=== PATIENT | female | born 1995 | race Caucasian/White ===

== ENCOUNTER 2017-10-26 08:06 | Inpatient (IN) | payer OTHER ==
[~2017-10-26] VITALS: Ht 154.9 cm; Wt 87.3 kg
[2017-10-26] VITALS (12 sets, daily range): BP systolic 128–161; BP diastolic 70–95; PULSE 73–157; TEMP 97.9–99.5
[~2017-10-26 08:06] MED LIST: IBU-6600 MG PO; NO HOME MEDICATIONS; NORCO 325 MG-51 TAB PO; NUVARING VAG RING VG; PERCOCET 325 MG1 TA2 PO; PRENATAL1 TA1 PO
[2017-10-26 08:58] LABS: BASO % 0.3 % (0.0-2.0); EOS # 0.1 (0.0-0.7); EOS % 0.8 % (0-4.0); GRAN # 7.4 (1.4-6.5); HEMOGLOBIN 12.7 g/dl (12.5-16.0); LYMPH # 3.7 (1.2-3.4); LYMPH % 30.7 % (20.0-51.0); MEAN CELL VOLUME 91 fl (80.0-100.0); MEAN CORPUSCULAR HEMOGLOBIN 32 pg (27.0-31.0); MEAN CORPUSCULAR HGB CONC 35 g/dl (33.0-37.0); MEAN PLATELET VOLUME 12.6 fl (7.4-10.4); MONO # 0.8 (0.1-0.6); MONO % 6.7 % (1.7-9.3); PLATELET COUNT 242 K/mm3 (130-400); RED BLOOD COUNT 3.97 M/mm3 (4.10-5.30); REDCELL DISTRIBUTION WIDTH-CV 14.9 % (11.5-14.5)
[2017-10-26 09:01] LABS: HEMATOCRIT 36.2 % (37.0-47.0)
[2017-10-27 00:20] VITALS: BP 142/81; PULSE 83; TEMP 98.9
[2017-10-27 04:20] VITALS: BP 125/90; PULSE 70; TEMP 97.8
[2017-10-27 08:45] VITALS: BP 128/75; PULSE 74; TEMP 98.5
[2017-10-27] MEDS ORDERED: PERCOCET 325 MG1 TA2 PO (08:50)
[2017-10-27] MEDS ORDERED: IBU800 M1 PO (08:50)
[2017-10-27 14:30] VITALS: BP 136/87; PULSE 72; TEMP 97.9
== END 2017-10-27 14:45 | disposition home or self-care (01) | DRG 774 ==
LOC: OB 08:06 → LDR 08:06 → OB 12:09 → LDR 10-28 11:22
PROVIDERS: Student in an Organized Health Care Education/Training Program
PROC: 10E0XZZ Delivery of Products of Conception, External Approach (ICD-10-PCS; principal; 2017-10-26)
PROC: 0KQM0ZZ Repair Perineum Muscle, Open Approach (ICD-10-PCS; 2017-10-26)
PROC: 0UQMXZZ Repair Vulva, External Approach (ICD-10-PCS; 2017-10-26)
DX: O70.1 Second degree perineal laceration during delivery (principal); Z37.0 Single live birth; O13.5 Gestational [pregnancy-induced] hypertension without significant proteinuria, complicating the puerperium; O71.82 Other specified trauma to perineum and vulva; Z3A.40 40 weeks gestation of pregnancy; Z23 Encounter for immunization
CPT/HCPCS: J2590; J7120

== ENCOUNTER 2019-03-08 16:31 | Outpatient (CLI) | payer SELFPAY ==
[~2019-03-08] VITALS: Ht 156.2 cm; Wt 83.9 kg
--- NOTE | 2019-03-08 16:25 | NUR ---
Pt here from the [facility] for IVF and NST. 36.6 weeks gestation, G3L2. Pt states baby is active. Pt to [facility], explained. Consent signed. Assessment complete. Pt denies any vaginal bleeding, leaking of fluid or contractions. Dr Aaron states pt with borderline low LAURIE and will given 1000ml LR and may DC home after reactive NST. IV started to left hand x 1 attempt. LR bolus started. Pt's family is at bedside. VSS, afebrile. FHR reactive.
[~2019-03-08 16:31] MED LIST changes: +IBU800 M1 PO
[2019-03-08] MEDS ORDERED: PRENATAL MVI (16:34)
--- NOTE | 2019-03-08 17:15 | NUR ---
1L LR infused. IVF and INT d/c. Discharge instructions given. No questions or concerns at this time. Leaves unit ambulatory.
== END 2019-03-08 17:15 | disposition home or self-care (01) ==
LOC: LDRO 16:31 → LDR 16:32 → LDRO 17:15
DX: O36.8930 Maternal care for other specified fetal problems, third trimester, not applicable or unspecified (principal); Z3A.36 36 weeks gestation of pregnancy
CPT/HCPCS: OP; J7120

== ENCOUNTER 2019-03-22 01:46 | Inpatient (IN) | payer OTHER ==
[~2019-03-22] VITALS: Ht 157.5 cm; Wt 83.2 kg
[2019-03-22] VITALS (14 sets, daily range): BP systolic 109–136; BP diastolic 58–89; PULSE 66–103; TEMP 98–98.7
--- NOTE | 2019-03-22 01:35 | NUR ---
G3L2. 38-6. Wheeled to LDR 3 with spouse. Pt states she is feeling pressure. SVE /-1. PT states she has been ellie since 42. Denies LOF. EFM and TOCO applied. called and requested at hospital. Pt requesting epidural. GRECIA Barnes notified. 0144: IV Started and labs obtained vis IV site. LR bolus infusing with Pen G without difficulties. 0147: at bedside SVE /0, Plan of care explained to pt and pt still requesting epidural. 0156: Deep variable decelerations noted with contractions. remains at nurses station and reviews FHR strip. PT repositioned to and oxygen administered via oxymask. 0203: Pt reports feeling the need to push. at bedside. SVE C/+2. Pt prepped for delivery. 0205: Spontaneous delivery of viable female by . Infant to mothers chest where dried and stimulated by nursery RN. Cord clamped X2 and cut by FOB. Care of infant assumed by Lucas CAMP. 0209: Spontaneous delievery of intact placenta by . Pitocin started at 333mus/hr per procotol. Perineum intact. Fundal message performed by provider. Plan of care explained to pt and . Pericare provided, pads changed and pt repositioned in bed. Safety precautions explained to pt. Call light within reach.
[~2019-03-22 01:46] MED LIST changes: +PRENATAL MVI
[2019-03-22 01:57] LABS: BASO % 0.1 % (0.0-2.0); EOS # 0.1 (0.0-0.7); EOS % 0.8 % (0-4.0); GRAN # 10.4 (1.4-6.5); GRAN % 71.6 % (42.2-75.2); HEMOGLOBIN 12.5 g/dl (12.5-16.0); LYMPH # 2.9 (1.2-3.4); LYMPH % 20.1 % (20.0-51.0); MEAN CELL VOLUME 93 fl (80.0-100.0); MEAN CORPUSCULAR HEMOGLOBIN 31 pg (27.0-31.0); MEAN CORPUSCULAR HGB CONC 34 g/dl (33.0-37.0); MEAN PLATELET VOLUME 11.7 fl (7.4-10.4); PLATELET COUNT 255 K/mm3 (130-400); RED BLOOD COUNT 3.98 M/mm3 (4.10-5.30); REDCELL DISTRIBUTION WIDTH-CV 13.7 % (11.5-14.5)
[2019-03-22 01:58] LABS: HEMATOCRIT 36.8 % (37.0-47.0)
[2019-03-23 07:30] VITALS: BP 120/75; PULSE 80; TEMP 98.3
[2019-03-23 16:36] VITALS: BP 117/71; PULSE 72; TEMP 97.9
[2019-03-23 21:00] VITALS: BP 119/76; PULSE 70; TEMP 98
[2019-03-24 09:09] VITALS: BP 111/79; PULSE 82
== END 2019-03-24 17:10 | disposition home or self-care (01) | DRG 807 ==
LOC: LDRO 01:46 → OB 02:29
PROVIDERS: ADMIT Student in an Organized Health Care Education/Training Program
PROC: 10E0XZZ Delivery of Products of Conception, External Approach (ICD-10-PCS; principal; 2019-03-22)
PROC: 10907ZC Drainage of Amniotic Fluid, Therapeutic from Products of Conception, Via Natural or Artificial Opening (ICD-10-PCS; 2019-03-22)
DX: O99.824 Streptococcus B carrier state complicating childbirth (principal); Z37.0 Single live birth; O76 Abnormality in fetal heart rate and rhythm complicating labor and delivery; O62.3 Precipitate labor; O69.1XX0 Labor and delivery complicated by cord around neck, with compression, not applicable or unspecified; Z3A.38 38 weeks gestation of pregnancy
CPT/HCPCS: J2540; J2590; J7120

== ENCOUNTER → 2019-09-28 | Outpatient (CLI) | payer SELFPAY ==
--- NOTE | 2019-09-28 11:44 | NUR ---
Pt, Delaney Sethi, presents to clinic with 6 month old baby girl, Kinza Sethi, for a evaluation upon referral by Dr. Mcarthur. Kinza is <1% for growth at 6 months of age. Kinza was born on [birth year] and weighed 6#10oz. At her 6 month [address] Mcarthur yesterday her weight was 10# 14.9oz (4.96 kg). Today Kinza weighs 10# 14oz (4932 gms). Delaney reports Kinza now breastfeeds q 2-3 hours in the daytime, and 4 hours at noc, still getting 8 breastfeedings daily. She also reports Kinza receives mashed beans, carrots, squash, yougert bites, and bananas by spoon at one meal daily, and BID for snacks. Kinza also takes 2-2oz bottles of EBM with rice cereal BID. Delaney states she collects 2oz of breastmilk BID, collection time is about 1.5 hours p . Kinza does not drink any formula at this reporting. Voids and stools are WNL for age. Kinza appears to latch well at this feeding, although Delaney states she sometimes uses the nipple shield for soreness, which is unusual at this stage. LC evaluates tongue mobility between breasts, Kinza is not lateralizing or raising the tongue up to the corners of her mouth. When the tongue is elevated with digital exam, the center of the tongue remains low and creates a divot. The tip of the tongue indents with tongue extension but the tongue is noted to cross the gum line and is visualized on the bottom side of the nipple with . After bilaterally Kinza has a weight gain of 1.5oz (44 gms) from the right breast and 2.8oz (78 gms) from the left for a total of 4.3oz (122 gms). 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 Recommendation: Continue current feeding plan, adding 2-3oz EBM after at least 6 feedings per day. Add 1/2 amount of rice cereal to bottles if she does not take plain EBM. F/U: Weight check as scheduled with Dr. Mcarthur. Walk in clinic next Wednesday10/03/19, or by telephone if not able to come in on that day. [facility] information also provided for pt's convenience for weight check if she cannot come to clinic on Wednesday as she lives [place] [address] from [facility]. Questions invited and answered.
== END ==
LOC: OLC 11:17
DX: Z39.1 Encounter for care and examination of lactating mother (principal); Z71.89 Other specified counseling

== ENCOUNTER 2020-06-25 18:51 | Emergency (ER) | payer SELFPAY ==
[~2020-06-25] VITALS: Ht 154.9 cm; Wt 81.8 kg
[2020-06-25 18:56] VITALS: BP 144/97; PULSE 99; TEMP 97.8
[2020-06-25] MEDS ORDERED: CEPHALEXIN500 M1 PO (20:27)
== END 2020-06-25 20:48 | disposition home or self-care (01) ==
LOC: COL.ER 18:51
DX: S61.412A Laceration without foreign body of left hand, initial encounter (principal); W26.0XXA Contact with knife, initial encounter

== ENCOUNTER → 2020-07-10 | Outpatient (CLI) | payer SELFPAY ==
[~2020-07-10] MED LIST changes: +CEPHALEXIN500 M1 PO
[2020-07-10 19:48] VITALS: BP 124/87; PULSE 92
== END ==
LOC: COL.ER 19:46
DX: Z48.02 Encounter for removal of sutures (principal)

== ENCOUNTER 2023-10-26 19:31 | Emergency (ER) | payer OTHER ==
[~2023-10-26] VITALS: Ht 157.5 cm; Wt 92.3 kg
[2023-10-26 19:42] VITALS: TEMP 99
[2023-10-26 20:21] LABS: BASO % 0.2 % (0.0-2.0); EOS # 0.2 K/mm3 (0.0-0.7); EOS % 1.7 % (0.0-4.0); GRAN # 5.9 K/mm3 (1.4-6.5); HEMOGLOBIN 12.4 g/dl (12.5-16.0); LYMPH # 2.7 K/mm3 (1.2-3.4); LYMPH % 27.9 % (20.0-51.0); MEAN CELL VOLUME 91 fl (80.0-100.0); MEAN CORPUSCULAR HEMOGLOBIN 31 pg (27-31); MEAN CORPUSCULAR HGB CONC 34 g/dl (33.0-37.0); MEAN PLATELET VOLUME 10.3 fl (7.4-10.4); MONO # 0.7 K/mm3 (0.1-0.6); MONO % 7.8 % (1.7-9.3); PLATELET COUNT 292 K/mm3 (130-400); RED BLOOD COUNT 3.99 M/mm3 (4.10-5.30); REDCELL DISTRIBUTION WIDTH-CV 13.9 % (11.5-14.5)
[2023-10-26 20:22] LABS: HEMATOCRIT 36.3 % (37.0-47.0)
[2023-10-26 20:44] LABS: ALBUMIN 3.1 g/dL (3.5-5.0); BILIRUBIN,TOTAL 0.3 mg/dL (0.2-1.2); CALCIUM 9.4 mg/dL (8.4-10.2); CREATININE, serum 0.66 mg/dL (0.57-1.11); POTASSIUM 3.3 mEq/L (3.5-4.5); TOTAL PROTEIN 7.7 g/dl (6.2-8.1)
--- NOTE | 2023-10-26 21:30 | NUR ---
2130 EFM ON FOR 20 MINUTE STRIP. BASELINE 155 WITH INCREASES TO 165 FOR FEW SECONDS. GOOD VARIABLITY NOTED.
[2023-10-26 22:00] VITALS: BP 129/87; PULSE 97
== END 2023-10-26 22:05 | disposition home or self-care (01) ==
LOC: COL.ER 19:31
PROVIDERS: Emergency Medicine
DX: O99.891 Other specified diseases and conditions complicating pregnancy (principal); R06.02 Shortness of breath; Z3A.27 27 weeks gestation of pregnancy

== ENCOUNTER 2024-01-21 06:07 | Inpatient (IN) | payer OTHER ==
[~2024-01-21] VITALS: Ht 154.9 cm; Wt 98.2 kg
[2024-01-21] VITALS (13 sets, daily range): BP systolic 113–148; BP diastolic 56–88; PULSE 73–95; TEMP 98–98.6
--- NOTE | 2024-01-21 06:00 | NUR ---
PT WHEELED TO LR5 WITH SPOUSE AT SIDE. PT CHANGED INTO CLEAN GOWN VOIDED, AND INTO LABOR BED. PT PLACED ON EFM AND TOCO. SVE AT THIS TIME IS 8/90/0. INTACT. NOTIFIED PHYSICIAN OF PT'S ARRIVAL. ADMISSION ORDERS RCVD. IV STARTED TO LEFT WRIST, IV FLUIDS INFUSING AT THIS TIME. ADMISSION CONSENTS GONE OVER AND PT VERBALIZED UNDERSTANDING OF PLAN OF CARE. PT POSITIONED TO WEDGE LEFT. NO OTHER CONCERNS AT THIS TIME.
[2024-01-21] MEDS ORDERED: LR 1,000 ML IV SCH (06:30)
[2024-01-21 06:58] LABS: BASO % 0.3 % (0.0-2.0); EOS # 0.1 K/mm3 (0.0-0.7); EOS % 1.1 % (0.0-4.0); GRAN # 6.6 K/mm3 (1.4-6.5); GRAN % 66.7 % (42.2-75.2); HEMATOCRIT 38.8 % (37.0-47.0); HEMOGLOBIN 13.4 g/dl (12.5-16.0); LYMPH # 2.5 K/mm3 (1.2-3.4); MEAN CELL VOLUME 89 fl (80.0-100.0); MEAN CORPUSCULAR HEMOGLOBIN 31 pg (27-31); MEAN CORPUSCULAR HGB CONC 35 g/dl (33.0-37.0); MONO # 0.7 K/mm3 (0.1-0.6); MONO % 6.6 % (1.7-9.3); PLATELET COUNT 269 K/mm3 (130-400); RED BLOOD COUNT 4.34 M/mm3 (4.10-5.30); REDCELL DISTRIBUTION WIDTH-CV 13.9 % (11.5-14.5)
[2024-01-21] MEDS ORDERED: CLARITIN 1010 MG/TAB PO (07:05)
--- NOTE | 2024-01-21 08:02 | NUR ---
0748: PT SVE COMPLETE, NOTIFIED WHO IS AT THE RN DESK. 0750: TO BEDSIDE TO GOWN AND GLOVE, BED BROKEN DOWN AND PATIENT PREPARED FOR PUSHING. 0752: PT BEGINS PUSHING EFFORTS WITH . EXCELLENT MATERNAL EFFORT. 0755: OF VIABLE FEMALE PER . INFANT PLACED ON MATERNAL ABDOMEN. CORD CLAMPEDX2 PER AND FOB CUT THE CORD. THE INFANT WAS THEN MOVED TO MATERNAL CHEST AND CARE OF WAS ASSUMED BY [facility]. CORD BLOOD OBTAINED PER AND PASSED OFF, TAKEN BY ZOË SÁNCHEZ. 0802: OF INTACT PLACENTA PER , PITOCIN STARTED PER HOSPITAL PROTOCOL. FUNDAL MASSAGE PERFORMED, LOCHIA WNL. PT REPOSITIONED TO SEMIFOWLERS WITH ICE PACK AND PERIPAD TO PERINEUM. 0810: NO OTHER CONCERNS AT THIS TIME. RECOVERY BEGINS AT THIS TIME.
[2024-01-21] MEDS ORDERED: Magnes Hydrox (MOM) 80 MG/ML 30 ML CUP PO PRN (08:15)
[2024-01-21] MEDS ORDERED: Naloxone 0.4 MG/ML VIAL IV PRN ×2 (08:15→08:45)
[2024-01-21] MEDS ORDERED: Mag/Al Hydrox/Simeth Susp 30 ML CUP PO PRN (08:15)
[2024-01-21] MEDS ORDERED: Loratadine 10 MG TAB PO PRN (08:15)
[2024-01-21] MEDS ORDERED: Phenylephrine/Mineral Oil/Petrolatum 57 GM TUBE RC PRN (08:15)
[2024-01-21] MEDS ORDERED: Witch Hazel 50% Pads Bulk TUB TP PRN (08:15)
[2024-01-21] MEDS ORDERED: Measles/Mumps/Rubella Virus Vaccine Live w Diluent 0.5 ML VIAL SQ SCH (08:15)
[2024-01-21] MEDS ORDERED: diphenhydrAMINE 50 MG/ML 1 ML VIAL IV PRN (08:45)
[2024-01-21] MEDS ORDERED: Ondansetron 4 MG/2 ML VIAL IV PRN (08:45)
[2024-01-21] MEDS ORDERED: diphenhydrAMINE 25 MG CAP PO PRN (08:45)
[2024-01-21] MEDS ORDERED: ePHEDrine 50 MG/10 ML VIAL IV PRN (08:45)
[2024-01-21] MEDS ORDERED: Ibuprofen 800 MG TAB PO SCH (09:00)
[2024-01-21] MEDS ORDERED: Acetaminophen 500 MG TAB PO SCH (09:00)
[2024-01-21] MEDS ORDERED: Sennosides/Docusate 8.6-50 MG TAB PO SCH (17:00)
[2024-01-21] MEDS ORDERED: traZODone 50 MG TAB PO PRN (21:00)
[2024-01-22 08:00] VITALS: BP 119/62; PULSE 75; TEMP 98.1
[2024-01-22] MEDS ORDERED: IBU800 M1 PO (10:15)
--- NOTE | 2024-01-22 12:33 | NUR ---
Data: Patient declined Spiritual Care visit offered during Refractory Worker rounds. Assessment: None. Patient declined. Plan of Care: Chaplains will remain available if requested while Patient is admitted to this hospital.
== END 2024-01-22 14:30 | disposition home or self-care (01) | DRG 807 ==
LOC: LDRO 06:07 → LDR 06:10 → OB 11:29
PROVIDERS: ADMIT Student in an Organized Health Care Education/Training Program
PROC: 10E0XZZ Delivery of Products of Conception, External Approach (ICD-10-PCS; principal; 2024-01-21)
PROC: 10907ZC Drainage of Amniotic Fluid, Therapeutic from Products of Conception, Via Natural or Artificial Opening (ICD-10-PCS; 2024-01-21)
DX: O99.214 Obesity complicating childbirth (principal); Z37.0 Single live birth; Z3A.30 30 weeks gestation of pregnancy